=== PATIENT | female | born 1985 | race Caucasian/White ===

== ENCOUNTER 2023-05-14 19:01 | Emergency (ER) | payer OTHER, SELFPAY ==
--- NOTE | ~2023-05-14 | XR_ITS ---
EXAMINATION: XR chest 1V portable Exam Date/Time: 05/14/2023 19:20 [facility] HISTORY: cough and congestion/PT Comparison: None. RESULT: Lines, tubes, and devices: None. Lungs and pleura: Clear. Cardiomediastinal silhouette: Normal. Other: No acute osseous or upper abdominal finding. IMPRESSION: No acute cardiopulmonary process. Reviewed, dictated and finalized at location [facility]
[2023-05-14 19:01] VITALS: BP 129/81; PULSE 99; RESP 18; TEMP 37.8; O2SAT 100
[2023-05-14 19:05] VITALS: O2SAT 100
[2023-05-14] MEDS: ACETAMINOPHEN 500 MG TABLET 1000 MG PO (19:25)
--- NOTE | 2023-05-14 19:34 | PC.NURSE ---
Pt refused HIV testing p offer, states she had it done in rehab recently and is getting established c OB
[2023-05-14 19:41] LABS: Basophils Absolute Auto 0.02 K/mm3 (0.00-0.10); Basophils Percent Auto 0.3 % (0.0-1.0); Eosinophils Absolute Auto 0.05 K/mm3 (0.02-0.50); Eosinophils Percent Auto 0.8 % (1.0-6.0); Hematocrit 37.3 % (35.0-49.0); Hemoglobin 11.7 g/dL (12.0-15.0); Immature Granulocyte Absolute 0.02 K/mm3 (0.00-0.00); Immature Granulocyte Percent A 0.3 % (0.0-0.0); Lymphocytes Absolute Auto 1.22 K/mm3 (1.10-4.50); Lymphocytes Percent Auto 20.7 % (18.0-42.0); Mean Corpuscular HGB Conc 31.4 g/dL (32.0-36.0); Mean Corpuscular Volume 89.2 fL (78.0-102.0); Mean Platelet Volume 10.9 fl (9.2-11.8); Monocytes Absolute Auto 0.69 K/mm3 (0.10-0.90); Monocytes Percent Auto 11.7 % (2.0-11.0); Neutrophils Absolute Auto 3.9 K/mm3 (1.7-7.2); Neutrophils Percent Auto 66.2 % (50.0-70.0); Platelet Count Result 196 K/mm3 (150-420); Red Blood Count 4.18 M/mm3 (4.20-5.40); Red Cell Distribution Width 13.2 % (11.6-14.4); White Blood Count 5.9 K/mm3 (4.8-10.8)
[2023-05-14 19:50] VITALS: TEMP 36.9
[2023-05-14 19:51] LABS: Strep Group A RT-PCR NOT DETECTED (Negative)
[2023-05-14 20:02] LABS: Influenza A QL RT-PCR Positive (Negative); Influenza B QL RT-PCR Negative (Negative); RSV RNA, RT-PCR Negative (Negative); SARS-CoV-2 RNA PCR Negative (Negative)
[2023-05-14 20:04] LABS: Lactic Acid Reflex 1.4 mmol/L (0.4-2.0)
--- NOTE | 2023-05-14 20:27 | ED.URI ---
HPI - URI/Sore Throat General Chief Complaint: Upper Respiratory Infection Stated Complaint: pneumonia Time Seen by Provider: 05/14/23 19:13 Source: patient Mode of arrival: ambulatory Limitations: no limitations History of Present Illness HPI Narrative: this is a 37-year-old female presents with 1 week history cough that is productive yellow sputum as fever with no shortness breath no chest nausea vomiting. With nasal congestion. MD elicited complaint: fever, cough and nasal congestion Onset (ago): day(s) Consistency: constant Severity: mild Exacerbating factors: nothing Related Data Home Medications Medication Instructions Recorded Confirmed No Home Medications 05/14/23 05/14/23 Allergies Allergy/AdvReac Type Severity Reaction Status Date / Time No Known Allergies Allergy Verified 05/14/23 19:10 Review of Systems Review of Systems: All systems reviewed & are unremarkable except as noted in HPI and below PMFSH Past Medical History Medical History Patient denies medical problems Exam Const: General: healthy appearing and no acute distress Nutritional Appearance: well nourished HENMT: Head: normal to inspection Neck: Neck: normal visual inspection Chest: Chest palpation & inspection: normal inspection of the chest Resp: Effort & Inspection: normal respiratory effort Auscultation: clear to auscultation bilaterally Cardio: Rate: regular rate Rhythm: regular rhythm GI: GI Palp: Yes Soft to palpation Course Course Emergency Course: patient is positive for flu but has had symptoms for over a week now she has a cough productive of sputum with normal white blood cell count. Vital Signs Vital signs: Vital Signs Temperature 37.8 C H 05/14/23 19:01 Pulse Rate 99 05/14/23 19:01 Respiratory Rate 18 05/14/23 19:01 Blood Pressure 129/81 05/14/23 19:01 Pulse Oximetry 100 05/14/23 19:01 Oxygen Delivery Room Air 05/14/23 19:01 Temperature 36.9 C 05/14/23 19:50 Pulse Rate 99 05/14/23 19:01 Respiratory Rate 18 05/14/23 19:01 Blood Pressure 129/81 05/14/23 19:01 Pulse Oximetry 100 05/14/23 19:05 Oxygen Delivery Room Air 05/14/23 19:05 MDM - URI/Sore Throat Lab Data 05/14/23 19:37 05/14/23 19:37 Labs: Lab Results 05/14/23 05/14/23 Range/Units 19:23 19:37 WBC 5.9 (4.8-10.8) K/mm3 RBC 4.18 L (4.20-5.40) M/mm3 Hgb 11.7 L (12.0-15.0) g/dL Hct 37.3 (35.0-49.0) % MCV 89.2 (78.0-102.0) fL MCH 28.0 (27.0-31.0) pg MCHC 31.4 L (32.0-36.0) g/dL RDW 13.2 (11.6-14.4) % Plt Count 196 (150-420) K/mm3 MPV 10.9 (9.2-11.8) fl Immature Gran % (Auto) 0.3 H (0.0-0.0) % Neut % (Auto) 66.2 (50.0-70.0) % Lymph % (Auto) 20.7 (18.0-42.0) % Becker % (Auto) 11.7 H (2.0-11.0) % Eos % (Auto) 0.8 L (1.0-6.0) % Baso % (Auto) 0.3 (0.0-1.0) % Lymph # (Auto) 1.22 (1.10-4.50) K/mm3 Becker # (Auto) 0.69 (0.10-0.90) K/mm3 Eos # (Auto) 0.05 (0.02-0.50) K/mm3 Baso # (Auto) 0.02 (0.00-0.10) K/mm3 Abs Immat Gran (auto) 0.02 H (0.00-0.00) K/mm3 Absolute Neuts (auto) 3.9 (1.7-7.2) K/mm3 Absolute Nucleated RBC 0.00 (0.00-0.00) K/mm3 Nucleated RBC % 0.0 (0-0.0) % Sodium Pending Potassium Pending Chloride Pending Carbon Dioxide Pending Anion Gap Pending BUN Pending Creatinine Pending Estim Creat Clear Calc Pending Estimated GFR Pending Glucose Pending Calculated Osmolality Pending Lactic Acid 1.4 (0.4-2.0) mmol/L Calcium Pending Total Bilirubin Pending AST Pending ALT Pending Alkaline Phosphatase Pending Total Protein Pending Albumin Pending Beta HCG, Quant Pending Influenza A (RT-PCR) Positive A (Negative) Influenza B (RT-PCR) Negative (Negative) RSV (RT-PCR) Negative (Negative) SARS-CoV-2 RNA (RT-PCR)
[2023-05-14 20:28] LABS: Alanine Aminotransferase 111 U/L (14-59); Albumin Level 3.3 g/dL (3.4-5.0); Alkaline Phosphatase 66 U/L (46-116); Anion Gap 5 mmol/L (8-16); Aspartate Amino Transferase 45 U/L (15-37); Bilirubin,Total 0.2 mg/dL (0.00-1.00); Blood Urea Nitrogen 8 mg/dL (7-18); Calcium 9.1 mg/dL (8.5-10.1); Carbon Dioxide 31 mmol/L (21-32); Chloride 98 mmol/L (98-108); Estimated CRCL calculation 81 ml/min; Estimated Glomerular Filt Rate > 60; Glucose 98 mg/dL (70-99); Osmolality Calculated 276 mOsm/kg (285-295); Sodium 134 mmol/L (136-145); Total Protein 6.7 g/dL (6.4-8.2)
[2023-05-14 20:41] VITALS: BP 124/71; PULSE 88; RESP 20; TEMP 37.2; O2SAT 100
--- NOTE | 2023-05-21 12:55 | PC.NURSE ---
Final blood culture report: no growth after 5 days.
== END 2023-05-14 20:46 | disposition home or self-care (01) ==
PROVIDERS: Emergency Provider Emergency Medicine
DX: J11.1 Influenza due to unidentified influenza virus with other respiratory manifestations (principal); J40 Bronchitis, not specified as acute or chronic; Z20.822 Contact with and (suspected) exposure to COVID-19
CPT/HCPCS: 36415; 71045; 80053; 83605; 84702; 85025; 87040; 87637; 87651; 99283

== ENCOUNTER 2024-02-01 20:42 | Emergency (ER) | payer OTHER, SELFPAY ==
[2024-02-01 20:48] VITALS: BP 133/81; PULSE 76; RESP 18; TEMP 36.1; O2SAT 98
--- NOTE | 2024-02-01 21:00 | ED.GENADULT ---
HPI - General Adult General Chief complaint: Skin/Abscess/Foreign Body Stated complaint: possible thrush Time Seen by Provider: 02/01/24 20:46 History of Present Illness HPI narrative: Charito presented to the ED with her baby with concerns of a white plaque on her left areola that does not scrape off. Her 2 month old baby has thrush as well. No fevers, chills, tenderness or systemic symptoms. Related Data Allergies Allergy/AdvReac Type Severity Reaction Status Date / Time No Known Allergies Allergy Verified 05/14/23 19:10 Review of Systems Review of Systems: All systems reviewed & are unremarkable except as noted in HPI and below PMFSH Past Medical History Medical History Patient denies medical problems Exam Const: General: cooperative, healthy appearing, comfortable, no acute distress, well developed, alert, awake and Physically active Orientation/consciousness: oriented to person, oriented to place and oriented to time HENMT: Head: normal to inspection, normocephalic and atraumatic Ears: hearing grossly normal bilaterally and external ears normal Face/Nose/Sinus: Normal external nose present Eyes: General: appearance normal, both eyes and all related structures Periorbital: periorbital findings normal Sclera: sclerae normal Pupils: Equal, round and reactive pupils present Neck: Neck: normal visual inspection Chest: Chest palpation & inspection: normal inspection of the chest Other: left areola had a white plaque with some erythema and satellite lesions Resp: Effort & Inspection: normal respiratory effort, able to speak in complete sentences and no respiratory distress Cardio: Jugular venous distension: no JVD Skin: General skin exam: normal color and no rashes or lesions noted Neuro: General: oriented to person, oriented to place and oriented to time Cranial nerves: Yes Equal, round and reactive pupils present Extrem: General: normal to inspection Course Course Emergency Course: suspect umu mastitis, Rx sent for nystatin Vital Signs Vital signs: Vital Signs Temperature 96.9 F L 02/01/24 20:48 Pulse Rate 76 02/01/24 20:48 Respiratory Rate 18 02/01/24 20:48 Blood Pressure 133/81 02/01/24 20:48 Pulse Oximetry 98 02/01/24 20:48 Oxygen Delivery Room Air 02/01/24 20:48 Temperature 96.9 F L 02/01/24 20:48 Pulse Rate 76 02/01/24 20:48 Respiratory Rate 18 02/01/24 20:48 Blood Pressure 133/81 02/01/24 20:48 Pulse Oximetry 98 02/01/24 20:48 Oxygen Delivery Room Air 02/01/24 20:48 Medical Decision Making Vital Signs Vital Signs: Vital Signs Temperature 96.9 F L 02/01/24 20:48 Pulse Rate 76 02/01/24 20:48 Respiratory Rate 18 02/01/24 20:48 Blood Pressure 133/81 02/01/24 20:48 Pulse Oximetry 98 02/01/24 20:48 Oxygen Delivery Room Air 02/01/24 20:48 Temperature 96.9 F L 02/01/24 20:48 Pulse Rate 76 02/01/24 20:48 Respiratory Rate 18 02/01/24 20:48 Blood Pressure 133/81 02/01/24 20:48 Pulse Oximetry 98 02/01/24 20:48 Oxygen Delivery Room Air 02/01/24 20:48 Discharge Plan Discharge Clinical Impression: Umu albicans infection Patient Disposition: Home, Self-Care Condition: Stable Instructions: Skin Yeast Infection (ED) Prescriptions: New nystatin 100,000 unit/gram ointment 1 applic topical QID Qty: 30 0RF Follow-up/Referrals: UNKNOWN,DOCTOR [Non-Staff] -
[2024-02-01 21:20] VITALS: BP 122/77; PULSE 74; RESP 18; TEMP 36.6; O2SAT 98
== END 2024-02-01 21:20 | disposition home or self-care (01) ==
PROVIDERS: Emergency Provider Family Medicine
DX: B37.2 Candidiasis of skin and nail (principal)
CPT/HCPCS: 99283